=== PATIENT | female | born 2000 | race Two or more races ===

== ENCOUNTER 2022-08-25 15:27 | Emergency (ER) | payer SELFPAY ==
[2022-08-25] MEDS ORDERED: Sodium Chloride 0.9% 10 ML Syringe FLUSH PRN (15:40)
[2022-08-25] MEDS ORDERED: LORazepam 2 MG/ML SDV IVPUSH ONE (15:56)
[2022-08-25] MEDS: LORazepam 2 MG/ML SDV ONE ×2 (15:56→17:34)
[2022-08-25 16:01] LABS: BASE EXCESS VENOUS,POC -15 mmol/L (-2 - 3+); PCO2 VENOUS,POC 44 mmHg (41-51); PH VENOUS,POC 7.12 pH Units (7.32-7.43)
[2022-08-25] MEDS ORDERED: Sodium Chloride 0.9% 1,000 ML IV ONE (16:05)
[2022-08-25] MEDS ORDERED: Activated Charcoal/Water Susp 50 GM/240 ML Tube ONE (16:09)
[2022-08-25 16:10] LABS: ESTIMATED GFR 82 mL/min (>60)
[2022-08-25] MEDS ORDERED: Activated Charcoal/Water Susp 50 GM/240 ML Tube PO ONE (16:10)
[2022-08-25] MEDS ORDERED: Sodium Bicarbonate 8.4% 50 MEQ/50 ML Syringe IVPUSH ONE (16:11)
== END 2022-08-25 16:38 ==
LOC: FB.ED 15:27 → EDBD 15:27 → FB.ED 16:38
DX: T43.222A Poisoning by selective serotonin reuptake inhibitors, intentional self-harm, initial encounter (principal); R00.2 Palpitations; R11.0 Nausea; F41.9 Anxiety disorder, unspecified; F32.A Depression, unspecified; E87.6 Hypokalemia; E87.20 Acidosis, unspecified
CPT/HCPCS: 36415; 80053; 80143; 80179; 80307; 84439; 84443; 85025; 93005; 96361; 96374; 96375; 99285; J2060; J3490; J7030